=== PATIENT | female | born 1980 | race Caucasian/White ===

== ENCOUNTER 2018-03-13 21:45 | Emergency (ER) | payer MEDICAID, OTHER ==
[~2018-03-13] VITALS: Ht 167.6 cm; Wt 72.6 kg
[2018-03-13 22:54] LABS: Basophils # (auto) 0.1 uL; Basophils % (auto) 0.6 % (0.0-2.0); Eosinophils # (auto) 0 uL; Eosinophils % (auto) 0.1 % (0.0-7.0); Hemoglobin 12.5 g/dL (12.2-16.2); Lymphocytes # (auto) 1.7 uL; Lymphocytes % (auto) 12.7 % (10.0-50.0); Mean Corpuscular Hemoglobin 29.2 pg (28.0-32.0); Mean Corpuscular Volume 88.6 fL (80.0-100.0); Monocytes # (auto) 0.8 uL; Neutrophils % (auto) 80.6 % (37.0-80.0); Nucleated Red Blood Cells % 0.1 %; Platelet Count (auto) 297 10^3/uL (140-450); Red Blood Cells 4.29 10^6/uL (4.0-5.20); Red Cell Distribution Width 15.6 % (11.8-14.3); White Blood Cell 13.6 10^3/uL (4.4-10.8)
[2018-03-13 23:12] LABS: Albumin 3.5 g/dL (3.4-5.0); Anion Gap 14 (5-15); Blood Urea Nitrogen 6 mg/dL (7-18); Carbon Dioxide 19 mmol/L (21-32); Chloride 103 mmol/L (98-107); Glucose 129 mg/dL (74-106); Potassium 3.1 mmol/L (3.5-5.1); Sodium 136 mmol/L (136-145)
[2018-03-13 23:14] LABS: Alanine Aminotransferase 41 U/L (13-56); Aspartate Aminotransferase 31 U/L (15-37); BUN/Creatinine Ratio 6.8; GFR African American 94 mL/min; GFR Non-African American 77 mL/min
[2018-03-13 23:19] LABS: Alkaline Phosphatase 54 U/L (45-117); Bilirubin, Total 0.3 mg/dL (0.2-1.0); Total Protein 8.2 g/dL (6.4-8.2)
[2018-03-13 23:45] VITALS: BP 162/96
[2018-03-14] MEDS ORDERED: ONDANSETRON HCL 4 MG/2 ML VIAL IV ONE
[2018-03-14] MEDS ORDERED: MORPHINE SULFATE 4 MG/ML SYR/VIAL IV ONE
[2018-03-14 00:08] LABS: Amylase 43 U/L (25-115); Lipase 108 U/L (73-393)
[2018-03-14 01:17] LABS: INR 0.95 (0.9-1.15); Partial Thromboplastin Time 25.3 sec (22.64-33.71); Prothrombin Time 10.4 sec (9.37-12.3)
[2018-03-14 02:54] LABS: Urine Bacteria FEW /hpf (None Seen); Urine Blood Negative /uL (Negative); Urine Mucus FEW (None Seen); Urine Specific Gravity 1.018 (1.001-1.035); Urine WBC 43 /hpf (0 - 5)
== END 2018-03-14 05:27 | disposition home or self-care (01) ==
LOC: ER 21:45 → EDBD 21:45 → ER 03-14 05:27
DX: K80.70 Calculus of gallbladder and bile duct without cholecystitis without obstruction (principal)
CPT/HCPCS: 36415; 71045; 76705; 80053; 81001; 82150; 83690; 83880; 84484; 85025; 85610; 85730; 93005; 96374; 96375; 99285; J2270; J2405

== ENCOUNTER 2024-09-15 12:57 | Emergency (ER) | payer MEDICAID ==
[~2024-09-15] VITALS: Ht 172.7 cm; Wt 102.0 kg
[2024-09-15 13:42] VITALS: BP 162/88; PULSE 107; PULSE 112; RESP 17; RESP 18; TEMP 98.1; O2SAT 100; O2SAT 97
--- NOTE | 2024-09-15 14:07 | ED.PDOC ---
Musculoskeletal HPI Comments 43 year old presents for leg cramps No other complaint Symptoms come and goes Described as a charley horse Symptoms come and go Worsens with ambulation Denies history of chronic steroid use or history of osteoporosis Denies any history of cancer Denies fevers chills night sweats nausea vomiting unintentional weight loss Denies IV drug use history of HIV/TB Denies abdominal "tearing" pain Denies syncope Denies urinary incontinence or urinary changes Denies numbness tingling of the groin or inner thigh Denies previous back procedure or surgery Chief Complaint: Lower Extremity Time Seen by MD: 13:13 Primary Care Provider: GLENN Reviewed Notes: Nurses Notes, Medications, Allergies Allergies: Coded Allergies: NO KNOWN ALLERGIES (Unverified , 10/21/13) Home Meds Active Scripts Methocarbamol (Methocarbamol) 500 Mg Tab, 500 MG PO Q6HPRN PRN for 14 Days, #56 TAB 0 Refills Prov:ASAD SANDOVAL NP 09/15/24 Ibuprofen Micronized (Ibuprofen) 800 Mg Tab, 800 MG PO TIDPRN PRN for 10 Days, #30 TAB 0 Refills Prov:ASAD SANDOVAL TE[employer]ER [employer] 09/15/24 Information Source: Patient Mode of Arrival: Ambulatory Past Medical History PAST MEDICAL HISTORY: Depression Surgical History: Denies all surgeries DIRECTOR BANKING History: No Pertinent DIRECTOR BANKING History Social History Smoker: Non-Smoker Alcohol: Heavy Drugs: Denies Drug Use Lives In: Home All Other Systems: Reviewed and Negative (Per HPI) Physical Exam General Appearance: No Apparent Distress, Normal HEENT: Normal ENT Inspection, Pharynx Normal, TMs Normal Neck: Full Range of Motion, Non-Tender, Normal, Normal Inspection Respiratory: Chest Non-Tender, Lungs Clear, No Accessory Muscle Use, No Respiratory Distress, Normal Breath Sounds Cardiovascular: No Edema, No JVD, No Murmur, No Gallop, Normal Peripheral Pulses, Regular Rate/Rhythm Breast Exam: Deferred Gastrointestinal: No Organomegaly, Non Tender, No Pulsatile Mass, Normal Bowel Sounds, Soft Genitalia: Deferred Pelvic: Deferred Rectal: Deferred Extremities: No calf tenderness, Normal capillary refill, Normal inspection, Normal range of motion, Non-tender, No pedal edema Musculoskeletal : Apperance: Normal Neurologic: Alert, test engineering intern II-XII nml as Tested, No Motor Deficits, Normal Affect, Normal Mood, No Sensory Deficits Cerebellar Function: Normal Reflexes: Normal Skin: Dry, Normal Color, Warm Lymphatic: No Adenopathy Was a procedure done? Was a procedure done?: No Differential Diagnosis EXT Differential Diagnosis: Sprain X-Ray, Labs, Meds, VS Vital Signs Date Time Temp Pulse Resp B/P (MAP) Pulse Ox O2 Delivery O2 Flow Rate FiO2 09/15/24 13:42 98.1 107 18 162/88 (112) 97 98.1 09/15/24 13:42 107 18 97 Room Air* 0 21 09/15/24 13:06 98.1 107 18 162/88 (112) 97 Lab Test 09/15/24 14:23 Range/Units White Blood Count 10.4 4.4-10.8 10^3/uL Red Blood Count 4.86 4.0-5.20 10^6/uL Hemoglobin 14.4 12.2-16.2 g/dL Hematocrit 42.4 36.0-46.0 % Mean Corpuscular Volume 87.2 80.0-100.0 fL Mean Corpuscular Hemoglobin 29.5 28.0-32.0 pg Mean Corpuscular Hemoglobin Concent 33.9 32.0-36.0 g/dL Red Cell Distribution Width 14.9 H 11.8-14.3 % Platelet Count 255 140-450 10^3/uL Mean Platelet Volume 7.9 6.9-10.8 fL Neutrophils (%) (Auto) 58.1 37.0-80.0 % Lymphocytes (%) (Auto) 30.9 10.0-50.0 % Monocytes (%) (Auto) 7.1 0.0-12.0 % Eosinophils (%) (Auto) 3.2 0.0-7.0 % Basophils (%) (Auto) 0.7 0.0-2.0 % Neutrophils # (Auto) 6.0 1.6-8.6 10 ^3/uL Lymphocytes # (Auto) 3.2 0.4-5.4 10 ^3/uL Monocytes # (Auto) 0.7 0-1.3 10 ^3/uL Eosinophils # (Auto) 0.3 0-0.8 10 ^3/uL Basophils # (Auto) 0.1 0-0.2 10 ^3/uL Nucleated Red Blood Cells 0.1 % Sodium Level 140 136-145 mmol/L Potassium Level 3.9 3.5-5.1 mmol/L Chloride Level 108 H 98-107 mmol/L Carbon Dioxide Level 23 20-31 mmol/L Anion Gap 9 5-15 Blood Urea Nitrogen 12 9-23 mg/dL Creatinine 0.57 0.550-1.02 mg/dL Glomerular Filtration Rate Calc 116 >90 mL/min BUN/Creatinine Ratio 21.1 H 10.0-20.0 Serum Glucose 86 74-106 mg/dL Calcium Level 9.4 8.7-10.4 mg/dL Magnesium Level 1.9 1.6-2.6 mg/dL Current Medications Medications (Trade) Dose Ordered Sig/[place] Route Start Time Stop Time Status Last Admin Ketorolac Tromethamine (Toradol Injection) 60 mg ONCE ONCE IM 09/15/24 14:15 09/15/24 14:32 DC 09/15/24 14:42 Acetaminophen/ Hydrocodone Bitart ([place] 5/325MG Tab) 1 tab ONCE ONCE PO 09/15/24 14:15 09/15/24 14:32 DC 09/15/24 14:42 X-Ray, Labs, Meds, VS Comment History and physical exam consistent with muscular injury. No red flags. The patient nontoxic non ill-appearing. After ROS physical examination patient was informed that her concerns do not represent a serious medical emergency at this time therefore symptomatic treatment will be initiated patient was advised to follow up with the PCP Supportive care advised (rest, ice, heat, NSAIDs, stretching exercises) Ibuprofen 600 mg every 8 hours with food as needed for the pain Massage muscles with cold pack or ice for 20 minutes 4 times per day. Usually most useful if there is swelling during the first 48 hours Heating pad on the most painful area for 20 minutes to relieve muscle spasm Sleep and the most comfortable sleeping position (usually on the side with knees bent) Light stretching, no strenuous activity, avoid frequent bending, avoid carrying heavy objects Discussed possible benefits of yoga and acupuncture Return precautions discussed including Inability to walk/bear weight Paresthesia/weakness/leg pain Fecal/urinary incontinence Any worsening symptoms Patient is stable for discharge at this time. External notes reviewed. Test results and diagnostic imaging interpreted. All diagnostic findings, discharge care, education and instructions provided Follow-up with PCP in 2 to 3 days Patient verbalized understanding and agreed to treatment plan Vital signs stable, afebrile, no acute distress noted Patient ambulatory with strong steady gait Advised to return precautions for any new or worsening symptoms, return to ER immediately for re-evaluation Patient is aware that the purpose of this visit was for an acute medical emergency requiring emergent stabilization. Chronic conditions, including malignancies have not been ruled out. Patient is instructed to follow up with PCP as directed and discharge instructions for continued care and workup. If unable to arrange follow-up, patient is to return to the emergency department for reassessment. Patient (parent or legal guardian if applicable) was given verbal and written discharge instructions and acknowledges understanding. Time of 1ST Reevaluation: 14:45 Reevaluation 1ST: Improved Patient Education/Counseling: Diagnosis, Treatment Family Education/Counseling: Diagnosis, Treatment Departure 1 Departure Time of Disposition: 14:57 Impression: Primary Impression: Musculoskeletal pain Additional Impression: Muscle spasm Disposition: HOME / SELF CARE / HOMELESS Condition: Stable e-Prescriptions Methocarbamol (Methocarbamol) 500 Mg Tab 500 MG PO Q6HPRN PRN for 14 Days, #56 TAB 0 Refills Prov: ASAD SANDOVAL NP 09/15/24 Ibuprofen Micronized (Ibuprofen) 800 Mg Tab 800 MG PO TIDPRN PRN for 10 Days, #30 TAB 0 Refills Prov: ASAD SANDOVAL NP 09/15/24 Discharged With: Self Critical Care Note Critical Care Time?: No Stability Stability form required: No Heart Score Heart Score: Heart Score Response (Comments) Value History N/A 0 EKG N/A 0 Age N/A 0 Risk Factors N/A 0 Troponin N/A 0 Total 0 ASAD SANDOVAL NP Sep 15, 2024 14:07
[2024-09-15 14:34] LABS: Basophils # (auto) 0.1 10 ^3/uL (0-0.2); Basophils % (auto) 0.7 % (0.0-2.0); Eosinophils # (auto) 0.3 10 ^3/uL (0-0.8); Eosinophils % (auto) 3.2 % (0.0-7.0); Hematocrit 42.4 % (36.0-46.0); Hemoglobin 14.4 g/dL (12.2-16.2); Lymphocytes # (auto) 3.2 10 ^3/uL (0.4-5.4); Lymphocytes % (auto) 30.9 % (10.0-50.0); Mean Corpuscular Hemoglobin 29.5 pg (28.0-32.0); Mean Corpuscular Hgb Conc. 33.9 g/dL (32.0-36.0); Mean Corpuscular Volume 87.2 fL (80.0-100.0); Monocytes # (auto) 0.7 10 ^3/uL (0-1.3); Monocytes % (auto) 7.1 % (0.0-12.0); Neutrophils % (auto) 58.1 % (37.0-80.0); Nucleated Red Blood Cells % 0.1 %; Platelet Count (auto) 255 10^3/uL (140-450); Red Blood Cells 4.86 10^6/uL (4.0-5.20); Red Cell Distribution Width 14.9 % (11.8-14.3); White Blood Cell 10.4 10^3/uL (4.4-10.8)
[2024-09-15] MEDS: HYDROcodone-ACET 5/325MG TAB PO ONE (14:42)
[2024-09-15] MEDS: KETOROLAC TROMETH 60MG/2ML VIAL IM ONE (14:42)
[2024-09-15 14:47] LABS: Chloride 108 mmol/L (98-107); Potassium 3.9 mmol/L (3.5-5.1); Sodium 140 mmol/L (136-145)
[2024-09-15 14:48] LABS: Anion Gap 9 (5-15); Calcium 9.4 mg/dL (8.7-10.4); Carbon Dioxide 23 mmol/L (20-31)
[2024-09-15 14:53] LABS: BUN/Creatinine Ratio 21.1 (10.0-20.0); Blood Urea Nitrogen 12 mg/dL (9-23); Glucose 86 mg/dL (74-106)
[2024-09-15 14:54] LABS: Magnesium 1.9 mg/dL (1.6-2.6)
[2024-09-15] MEDS ORDERED: METH-1181 PO (14:59)
[2024-09-15] MEDS ORDERED: IBUP-1455 PO (14:59)
== END 2024-09-15 15:00 | disposition home or self-care (01) ==
LOC: ER 12:57
DX: M62.831 Muscle spasm of calf (principal); Z79.1 Long term (current) use of non-steroidal anti-inflammatories (NSAID); Z79.899 Other long term (current) drug therapy
CPT/HCPCS: 36415; 80048; 83735; 85025; 96372; 99283; J1885